=== PATIENT | male | born 1935 | race Caucasian/White ===

== ENCOUNTER 2016-08-19 02:00 | Inpatient (IN) | payer MEDICARE, BC ==
--- NOTE | ~2016-08-19 | MR18 ---
[facility] A Service of [facility] RADIOLOGY TEXT RESULTS PATIENT: RENETTA JENSEN LOCATION: [facility] : 34 UNIT #: [id number] AGE: [address]: Melissa Sheth MD SEX: M ORDER DR: [id number] [place] [id number] [facility]. [place], [place] [address] [id number] I MR#: [id number] Acc #: [id number] NAME: RENETTA JENSEN : 1935 SEX: M STUDY DATE/TIME: 08/19/2016 15:44 [facility] ROOM: [facility] STUDY DESCRIPTION: MR Brain Wo Contrast Attending Physician: Melissa Sheth M.D. Ordering Physician: Melissa Sheth M.D. MRI CENTER REPORT This report is preliminary unless electronic signature is present. EXAM Brain MRI, no contrast, 08/19/2016 TECHNIQUE Routine unenhanced brain MRI. COMPARISON STUDIES None. HISTORY Fall last week with confusion for the past week. FINDINGS There is no evidence of acute ischemia or other restricted diffusion. There is no hemorrhage or hydrocephalus or extraaxial fluid collection. There is volume loss, but normal flow voids are seen in the cerebral vessels. The extracranial structures are unremarkable and bone marrow signal is within normal limits. IMPRESSION Age-appropriate volume loss. No convincing acute abnormality. Mild nonspecific white matter change but again, not greater than expected for age. Dictated by... Maurice Hinton M.D. THIS IS AN ELECTRONICALLY VERIFIED REPORT Maurice Hinton M.D. at 08/20/2016 3:54 PM TEV/pcl [facility] A Service of [facility] RADIOLOGY TEXT RESULTS PATIENT: RENETTA JENSEN LOCATION: [facility] : 34 UNIT #: [id number] AGE: [address]: Melissa Sheth MD SEX: M ORDER DR: TD: 08/19/2016 19:04 JOB #: [id number] MRI CENTER REPORT Page 1 of 1 COPY
--- NOTE | ~2016-08-19 | EKG ---
PATIENT: RENETTA JENSEN UNIT #: [id number] Ventricular Rate: 72 BPM Atrial Rate: 72 BPM P-R Interval: 184 ms QRS Duration: 148 ms Q-T Interval: 438 ms QTC Calculation(Bezet): 479 ms P [place]: 60 degrees Calculated R [place]: -62 degrees Calculated T [place]: 70 degrees Diagnosis Line: Normal sinus rhythm Diagnosis Line: Left axis deviation Diagnosis Line: Right bundle branch block Diagnosis Line: Moderate voltage criteria for LVH, may be normal Diagnosis Line: variant Diagnosis Line: Inferior infarct (cited on or before 19-AUG-2016) Diagnosis Line: Anterolateral infarct (cited on or before Diagnosis Line: 19-AUG-2016) Diagnosis Line: Abnormal ECG Diagnosis Line: When compared with ECG of 21-AUG-2016 09:37, Diagnosis Line: No significant change was found Diagnosis Line: Confirmed by IRINA PORTER MD ([id number]) on Diagnosis Line: 08/23/2016 8:49:29 AM INTERPRETING : EL
--- NOTE | ~2016-08-19 | CO ---
Unit #: [id number] #: [id number] Patient: RENETTA JENSEN [id number] [facility] [address]. [place], [place] [address] [id number] I MR#: [id number] NAME: RENETTA JENSEN ROOM: 329 Age: 80 Sex: M Admission Date: 08/18/2016 : 1935 Attending Physician: Melissa Sheth M.D. Primary Care Physician: Generic Doctor Not In System Requesting Physician: Roxy Reno M.D. CONSULTATION REPORT REASON FOR CONSULTATION Increased troponin. HISTORY OF PRESENT ILLNESS Mr. Jensen is a pleasant 80-year-old who was admitted with confusion to [facility]. He had been seen twice in the past week after a simple fall, without syncope, injuring his knee and his right shoulder. He was on Ultram and this was a concern noted in the chart. His family found him very confused yesterday, fumbling at opening a door, remembering their names and the date, but not typical issues which he could remember. He has known coronary disease, treated by Dr. Garcia initially, and now by Dr. Francis. He is status post coronary artery bypass grafting and has peripheral vascular disease, status post left CEA. He has diabetes and hypertension with hypokalemia. Blood pressures were found at one point during this medical workup to be 170/110. The patient was also found to have a blank stare during one of his evaluations at [facility], and to pour ice on himself during on of his evaluations here at [facility]. To me he appears rational and lucid, answers questions appropriately. He notes no angina or anginal equivalent. He is not clear about what he felt before his bypass. He has had no PND, orthopnea, sleeps in a chair because of his back, no known syncope or edema. PAST MEDICAL HISTORY 1. Coronary artery disease, status post coronary artery bypass grafting. 2. Hypertension. 3. Diabetes. 4. Dyslipidemia. 5. Status post left carotid endarterectomy. 6. Glaucoma. 7. Degenerative joint disease. 8. Hard of hearing. 9. Bilateral foot surgery. 10. Bilateral total knee replacements. SOCIAL HISTORY The patient lives alone. Stopped smoking 28 years ago. Rare alcohol. FAMILY HISTORY Unit #: [id number] #: [id number] Patient: RENETTA JENSEN Not clinically contributory. ALLERGIES Penicillin. CURRENT MEDICATIONS 1. Hydralazine 100 mg t.i.d. 2. Lipitor 20 mg daily. 3. Lasix 40 mg daily. 4. Norvasc 10 mg daily. 5. Aspirin 81 mg daily. Recently increased to 325 mg daily. 6. Cozaar 25 mg daily. 7. Amaryl 1 mg daily. 8. Baclofen 10 mg t.i.d. 9. Ultram 50 mg q.4 h. p.r.n. 10. Naprosyn 500 mg b.i.d. 11. Alphagan eyedrops, Timoptic eyedrops. REVIEW OF SYSTEMS Reported as negative with the exception of the back, as noted above, however, there is the issue of confusion. PHYSICAL EXAMINATION GENERAL: Pleasant, alert, no acute distress. VITALS: Blood pressure initially 173/75, currently 162/81. Height 5'6", weight 205 pounds, BMI 33. PHYSICAL EXAMINATION GENERAL: Pleasant, alert, in no acute distress. VITAL SIGNS: Respiratory rate , blood pressure , heart rate and regular. SKIN: Warm and dry. No xanthelasma. MUSCULOSKELETAL: No missing digits. Moves easily for evaluation. NEUROLOGICAL: Appropriate mood and affect. Alert and oriented x3. HEENT: Pupils equal, round and reactive. No oral cyanosis. No icterus. NECK: Carotids clear to auscultation with no carotid bruits. Normal carotid upstroke bilaterally. Thyroid is normal in size and texture without masses or tenderness. CHEST: Clear to auscultation with no rales or wheezes. Good effort. CARDIAC: Grade 2/6 aortic outflow murmur. Normal point of maximum impulse. Normal S1 and S2. No S3, S4 or rub. ABDOMEN: No hepatosplenomegaly, masses or tenderness. Normal bowel sounds. No abdominal bruits heard. EXTREMITIES: No clubbing, cyanosis or edema. Excellent posterior tibial and dorsalis pedis pulses. DIAGNOSTIC STUDIES LABORATORY: Creatinine was 1.8, potassium 3.3 at [facility]. Here the creatinine is 1.6, potassium 3.2. White blood cell count 10.8, hemoglobin 14.0, platelet count 251,000. Urinalysis shows 2+ protein and no other significant changes. CARDIOVASCULAR: I reviewed the ECG, which shows no change between the [facility] ECG done yesterday at 14:27 and today's ECG at 06:04. There is right bundle branch block, with secondary ST changes. Low anterior forces. Lead placement differences between V3 and V4. No acute ST changes. Intraventricular conduction delay where secondary ST changes are stable between leads 1 and AVL, with evidence of prior inferior infarction. Unit #: [id number] #: [id number] Patient: RENETTA JENSEN ASSESSMENT 1. Acute non-ST elevation myocardial infarction. Appears to be a type 2. No sure what the inciting event is. 2. Confusion, undetermined etiology. Neurology is consulted. 3. Hypertension with hypokalemia, highly suggestive of hyperaldosteronism. We will get him started on spironolactone. 4. Mild chronic kidney disease. Creatinine 1.6 and 1.8. 5. Peripheral vascular disease, status post left carotid endarterectomy. Need to recheck carotids, especially with this confusion episode. 6. Diabetes. 7. Grade 2/6 aortic outflow murmur, very distinct. He has not known of a murmur before. RECOMMENDATIONS 1. Check an echo. Change medications if necessary, if his ejection fraction is very low. 2. Continue with spironolactone. 3. Continue to follow troponins. He does not have any chest pain. As best we can tell, there has been no ventricular dysrhythmia that would contribute to the confusion. We will treating this type 2 non-ST elevation myocardial infarction medically for now. 4. We will check an echo and carotids, and overnight oximetry. I have sometimes seen these acute confusion episodes related to sleep disordered breathing. That would not account for the troponin. 5. Start Plavix. 6. On Lovenox currently. 7. No Integrilin unless ECG changes or chest pain. Thanks very much for this consultation. We will follow with you. Dictated by... Marshal Dobbs M.D. VERNELL/sergo TD: 08/19/2016 11:11 JOB #: [id number] CONSULTATION REPORT Page 1 of 1 X Marshal Dobbs MD X CONSULTATION REPORT
--- NOTE | ~2016-08-19 | EKG ---
PATIENT: RENETTA JENSEN UNIT #: [id number] Ventricular Rate: 82 BPM Atrial Rate: 82 BPM P-R Interval: 236 ms QRS Duration: 160 ms Q-T Interval: 426 ms QTC Calculation(Bezet): 497 ms P [place]: 62 degrees Calculated R [place]: -60 degrees Calculated T [place]: 88 degrees Diagnosis Line: Sinus rhythm with 1st degree A-V block Diagnosis Line: Left axis deviation Diagnosis Line: Right bundle branch block Diagnosis Line: Left ventricular hypertrophy with repolarization Diagnosis Line: abnormality Diagnosis Line: Inferior infarct , age undetermined Diagnosis Line: Anterolateral infarct , age undetermined Diagnosis Line: Abnormal ECG Diagnosis Line: No previous ECGs available Diagnosis Line: Confirmed by VINICIUS MARROQUIN MD ([id number]) on 08/19/2016 Diagnosis Line: 10:41:34 PM INTERPRETING MD: LOPEZ ENCINAS
--- NOTE | ~2016-08-19 | EKG ---
PATIENT: RENETTA JENSEN UNIT #: [id number] Ventricular Rate: 69 BPM Atrial Rate: 69 BPM P-R Interval: 194 ms QRS Duration: 148 ms Q-T Interval: 446 ms QTC Calculation(Bezet): 477 ms P [place]: 58 degrees Calculated R [place]: -60 degrees Calculated T [place]: 47 degrees Diagnosis Line: Sinus rhythm with occasional Premature ventricular Diagnosis Line: complexes Diagnosis Line: Left axis deviation Diagnosis Line: Right bundle branch block Diagnosis Line: Inferior infarct (cited on or before 19-AUG-2016) Diagnosis Line: Possible Anterolateral infarct (cited on or before Diagnosis Line: 19-AUG-2016) Diagnosis Line: Abnormal ECG Diagnosis Line: When compared with ECG of 20-AUG-2016 11:29, Diagnosis Line: (unconfirmed) Diagnosis Line: Premature ventricular complexes are now Present Diagnosis Line: T wave inversion no longer evident in Inferior Diagnosis Line: leads Diagnosis Line: Confirmed by IRINA PORTER MD ([id number]) on Diagnosis Line: 08/21/2016 11:20:48 PM INTERPRETING MD: EL
--- NOTE | ~2016-08-19 | MR134 ---
[facility] A Service of [facility] RADIOLOGY TEXT RESULTS PATIENT: RENETTA JENSEN LOCATION: [facility] 329- : 34 UNIT #: [id number] AGE: [address]: Melissa Sheth MD SEX: M ORDER DR: [id number] [facility] [address]. [place], [place] [address] [id number] I MR#: [id number] Acc #: [id number] NAME: RENETTA JENSEN : 1935 SEX: M STUDY DATE/TIME: 08/19/2016 16:12 UNIT: [facility] ROOM: [facility] STUDY DESCRIPTION: MR MRA Neck Wo Contrast Attending Physician: Melissa Sheth M.D. Ordering Physician: Melissa Sheth M.D. MRI CENTER REPORT This report is preliminary unless electronic signature is present. EXAM Neck MRA, no contrast, 08/19/2016 TECHNIQUE Axial ikpb-pp-oouszs neck MRA with 3-D reformats. COMPARISON Carotid Doppler same date and head MRA same date. FINDINGS The common carotids are patent bilaterally, and the right vertebral is actually seen easily throughout the neck, even though the Doppler study suggests it might be occluded. The left carotid bifurcation is normal without stenosis by NASCET or other criteria. 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 IMPRESSION 1. Both vertebral arteries are patent, contrary to what was suggested by the carotid Doppler. In fact, the right is better seen than the left. 2. 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 Dictated by... Maurice Hinton M.D. THIS IS AN ELECTRONICALLY VERIFIED REPORT Maurice Hinton M.D. at 08/20/2016 3:54 PM TEV/pcl TD: 08/19/2016 19:15 [facility] A Service [facility] RADIOLOGY TEXT RESULTS PATIENT: RENETTA JENSEN LOCATION: [facility]- : 34 UNIT #: [id number] AGE: [address]: Melissa Sheth MD SEX: M ORDER DR: SERGIO #: [id number] MRI CENTER REPORT Page 1 of 1 COPY
--- NOTE | ~2016-08-19 | US37 ---
[facility] A Service of [facility] RADIOLOGY TEXT RESULTS PATIENT: RENETTA JENSEN LOCATION: [facility] : 34 UNIT #: [id number] AGE: [address]: Melissa Sheth MD SEX: M ORDER DR: [id number] [facility] [address]. [place], [place] [address] [id number] I MR#: [id number] Acc #: [id number] NAME: RENETTA JENSEN : 1935 SEX: M STUDY DATE/TIME: 08/19/2016 12:16 UNIT: [facility] PCU ROOM: [facility] STUDY DESCRIPTION: US Carotid W/Doppler Bilateral Attending Physician: Melissa Sheth M.D. Ordering Physician: Melissa Sheth M.D. Primary Care Physician: Generic Doctor Not In System MEDICAL IMAGING REPORT This report is preliminary unless electronic signature is present EXAM Carotid Doppler, 08/19/2016 PROCEDURE Hu-scale imaging, color Doppler flow imaging and Doppler waveform analysis. HISTORY Coronary artery disease, hypertension, hyperlipidemia and known carotid atherosclerosis with previous left carotid endarterectomy now with 2 day history of confusion. FINDINGS Hu-scale imaging reveals extensive evidence of plaque throughout both carotid systems. There is antegrade flow in both common and external carotid arteries, and in the left internal carotid and vertebral artery but there is no flow in the right internal carotid artery and the right vertebral artery is not identified. Left internal carotid peak systolic velocity is 1.12 m/sec with a brisk upstroke and mild to moderate spectral broadening. IMPRESSION 1. 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 2. Left internal carotid peak systolic velocity 1.12 m/sec suggesting less than 50% stenosis by NASCET criteria. 3. Antegrade flow in both external carotid arteries and in the left vertebral artery. Dictated by... Maurice Hinton M.D. [facility] A Service of [facility] RADIOLOGY TEXT RESULTS PATIENT: RENETTA JENSEN LOCATION: [facility] 329- : 34 UNIT #: [id number] AGE: [address]: Melissa Sheth MD SEX: M ORDER DR: THIS IS AN ELECTRONICALLY VERIFIED REPORT Maurice Hinton M.D. at 08/20/2016 3:53 PM Dmitry TD: 08/19/2016 14:17 JOB #: [id number] MEDICAL IMAGING REPORT Page 1 of 1 COPY
--- NOTE | ~2016-08-19 | HP ---
Unit #: [id number] #: [id number] Patient: RENETTA JENSEN [id number] [address] [address] [id number] I MR#: [id number] NAME: RENETTA JENSEN ROOM: 329 Age: 80 Sex: M Admission Date: 08/18/2016 : 1935 Attending Physician: Melissa Sheth M.D. Primary Care Physician: Generic Doctor Not In System HISTORY AND PHYSICAL CHIEF COMPLAINT Confusion. HISTORY This pleasant 80-year-old male, with peripheral vascular disease, hypertension, adult-onset diabetes mellitus and coronary artery disease, was transferred from [facility] Emergency Department for confusion. The patient fell last week, hit his shoulder and was prescribed Ultram. Yesterday, his son was visiting the patient around 12:30 in the afternoon. The patient was quite confused. He was taken to [facility] Emergency Department where he was noted to be confused and had a staring episode, which seemed to respond to a small dose of Ativan. Blood pressure was 177/79. The rest of the vital signs were stable. His workup was fairly unremarkable except for some kidney disease. He was sent to this facility where he is awake, alert, seems to be fairly oriented but is confused. He is trying to melt his ice. When I took the ice away from him to examine him and gave him the ice back, he accidently poured the ice on himself as he forgot that he was holding the ice in a cup. Normally he is alert and oriented and able to take care of himself. PAST MEDICAL HISTORY 1. Peripheral vascular disease status post left carotid endarterectomy. 2. Essential hypertension. 3. Hyperlipidemia. 4. Adult-onset diabetes mellitus. 5. Glaucoma. 6. DJD. 7. Coronary artery disease status post 4-vessel CABG. 8. Melanoma excised. 9. Hard of hearing. 10. Bilateral foot surgery. 11. Bilateral total knee replacement. ALLERGIES Penicillin. HOME MEDICATIONS 1. Hydralazine 100 mg t.i.d. 2. Lipitor 20 mg daily. 3. Lasix 40 mg daily. 4. Norvasc, uncertain dose. Unit #: [id number] #: [id number] Patient: RENETTA JENSEN 5. Aspirin 81 mg daily. 6. Cozaar 25 mg daily. 7. Amaryl 1 mg daily. 8. Baclofen 10 mg t.i.d. 9. Ultram 50 mg q.4 hours as needed. 10. Naprosyn 500 mg b.i.d. 11. Alphagan eyedrops. 12. Timoptic eyedrops. FAMILY HISTORY Noncontributory given the patient's age. SOCIAL HISTORY The patient lives alone. He stopped smoking 28 years ago. Drinks occasional beer. REVIEW OF SYSTEMS Review of systems is difficult to obtain, as the patient is a bit confused and hard of hearing. Noted that he has blood pressure, heart disease, previous history of melanoma, knee replacements, arthritis and coronary artery disease. All other systems were reviewed with the patient and are negative. PHYSICAL EXAMINATION GENERAL: Pleasant, obese 80-year-old male, currently in no acute distress. VITAL SIGNS: Blood pressure 173/75, respirations 20, pulse 91, temperature 98.4. HEENT: Eyes-PERRLA. Extraocular muscles are intact. Pharynx is benign. NECK: Supple without adenopathy or thyromegaly. CHEST: Clear. CARDIAC: Normal S1, S2, with a soft systolic murmur best heard at the right upper sternal border. ABDOMEN: Bowel sounds are present. No hepatosplenomegaly, tenderness or masses. EXTREMITIES: Without edema. Pedal pulses are diminished. No ulcers on the feet. NEUROLOGIC: The patient is awake, alert, oriented to the fact that he is in a hospital. Knows the year and the president. His cranial nerves are intact except that he is hard of hearing. He has equal strength throughout. Normal kltipj-ev-bwnu and negative pronator drift. DIAGNOSTIC STUDIES ADMISSION LABS: Cardiac markers are negative. SMA-12 - BUN 37, creatinine 1.8 without previous values for comparison. Potassium 3.3. Hematocrit 45, white blood count 11.5, normal platelet count. Urinalysis - 2+ protein, trace bacteria with a few white cells. IMAGING: Chest x-ray - Negative. Head CT, I am told, was negative, although I do not have a formal report. ASSESSMENT 1. New confusion and spell, rule out seizure. 2. Fall last week. Patient started Ultram, which may be contributing. 3. Adult-onset diabetes mellitus. 4. Essential hypertension. 5. Glaucoma. Unit #: [id number] #: [id number] Patient: RENETTA JENSEN 6. DJD status post bilateral total knee replacement. 7. Hyperlipidemia. 8. Coronary artery disease status post CABG. 9. Peripheral vascular disease status post left carotid endarterectomy. 10. Melanoma excised. 11. Hard of hearing. 12. Acute versus chronic kidney disease. PLANS 1. IV fluids. 2. Discontinue Ultram. Hold Lasix, Amaryl, ARB, baclofen and Naprosyn. 3. Repeat UA, urine C and S and will give antibiotics if there is concern for infection. 4. MRI of the brain, EEG and neurology consultation. 5. SCDs for DVT prophylaxis. Dictated by Shae Powell/lina TD: 08/19/2016 07:52 JOB #: [id number] HISTORY AND PHYSICAL Page 1 of 1 X Geno Milligan MD X HISTORY AND PHYSICAL
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
--- NOTE | ~2016-08-19 | TOC ---
Unit #: [id number] #: [id number] Patient: RENETTA JENSEN [id number] [address] [place], [place] [address] [id number] I MR#: [id number] NAME: RENETTA JENSEN ROOM: 560 Age: 80 Sex: M Admission Date: 08/19/2016 : 1935 Attending Physician: Melissa Sheth M.D. TRANSFER OF CARE SUMMARY PRINCIPAL DIAGNOSES 1. Non-ST segment elevation myocardial infarction. 2. Acute confusion question secondary to #1, workup otherwise negative. 3. 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 4. Multivessel coronary artery disease status post stenting to right coronary artery x1. 5. Hypokalemia. 6. Peripheral arterial disease with prior history of left carotid endarterectomy. 7. Diabetes mellitus type 2. 8. Chronic decreased mobility, at baseline, independent with activities of daily living. 9. Severe vitamin B12 deficiency with vitamin B12 level of 194. 10. Hyperlipidemia. 11. Hypertension. 12. Chronic back pain secondary to degenerative disk disease. 13. History of melanoma. 14. Hard of hearing. 15. Chronic systolic congestive heart failure without exacerbation. CONSULTANTS 1. Dr. Dan, Neurology. 2. Dr. Dobbs, Cardiology. PROCEDURES 1. Two-dimensional echocardiogram on August 19, 2016, with mild mitral stenosis, mild aortic regurgitation noted, right ventricular systolic pressure of 25 mmHg, and ejection fraction of 35% to 40%. 2. Left-sided heart catheterization on August 21, 2016, with severe inferior wall hypokinesis of the left ventricle. Anterior wall had mild hypokinesis. Left main was calcified with 30% stenosis. The LAD proximally was severely calcified with 99.9% stenosis at the first septal branch. Distal was normal. The SANTORO graft was 100% stenosed. Saphenous vein graft to first diagonal was 30% stenosed. Left circumflex 100% stenosed. Saphenous vein graft to obtuse marginal patent. The RCA was 100% stenosed. Saphenous vein graft was 90% stenosed at the mid segment. Patient underwent stenting of the saphenous vein graft to RCA, and the plan is for staged PCI to the LAD. 3. EEG which was negative. 4. Carotid Doppler bilaterally on August 19, 2016, with occluded right internal carotid artery and right vertebral artery was questionably occluded. Antegrade flow in both external carotid arteries. Unit #: [id number] #: [id number] Patient: RENETTA JENSEN 5. MRI of the brain without contrast on August 19, 2016, with age-appropriate volume loss and no other acute abnormality. Chronic white matter ischemic change noted. 6. 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 CLINICAL HISTORY AND HOSPITAL COURSE Mr. Jensen is a very nice 80-year-old male transferred from [facility] after presenting there with the abrupt onset of confusion. Please refer to History and Physical for further details. Patient's confusion was described as a starring episode rather than any sort of focal neurologic deficit consistent with stroke and no seizure-like activity. A CT scan of the head was negative at [facility]. Dr. Dan was consulted regarding confusion. There was concern initially that this might represent seizure activity particularly given patient improved with Ativan at [facility]. However, he has had no further episodes here, EEG was negative, and given isolated event, there are no plans to treat as seizure activity at this time. It is felt that his confusion may be secondary to decreased cerebral perfusion secondary to his NSTEMI. Patient denied feeling poorly, i.e., chest pain or shortness of breath prior to the onset of his confusion. However, when he presented here, troponin was found to be elevated at 1.8 for which Cardiology was consulted, and patient was placed on aspirin, nitroglycerin, oxygen, morphine, and therapeutic Lovenox. Troponin since that time has subsequently trended downward, and EKGs have been unremarkable. Patient has a known history of coronary artery disease status post bypass grafting approximately 30 years ago. Patient underwent left-sided heart catheterization today revealing stenosis primarily to his saphenous vein graft to the RCA and to his SANTORO graft to the left circumflex. Patient underwent stent placement x1 to his right coronary artery, and there are plans for staged PCI at [facility]. This will be further discussed with patient via Cardiology. Patient did have a mild bump in creatinine upon presentation with a creatinine of 1.6, but creatinine has now normalized to 1 to 1.1 which is patient's baseline. Patient is being monitored overnight given his stenting to the saphenous vein graft to the RCA, and I anticipate discharge home on August 22, 2016, with followup with Cardiology as an outpatient for intervention of his SANTORO graft. I will note, patient was found to have significant vitamin B12 deficiency. This has been replaced subcutaneously during hospitalization, and he can be discharged home on oral supplementation with plans for injections as an outpatient at his primary care physician office. Further hospitalization to be dictated as an addendum. Dictated by... Melissa Sheth M.D. Unit #: [id number] #: [id number] Patient: RENETTA JENSEN SUSIE/maureen TD: 08/23/2016 15:30 JOB #: [id number] TRANSFER OF CARE SUMMARY Page 1 of 1 X Melissa Sheth MD X TRANSFER OF CARE SUMMARY
--- NOTE | ~2016-08-19 | DS ---
Unit #: [id number] #: [id number] Patient: RENETTA JENSEN [id number] [address] [place], [place] [address] [id number] I MR#: [id number] NAME: RENETTA JENSNE ROOM: 560 Age: 80 Sex: M Admission Date: 08/19/2016 : 1935 Discharge Date: 08/22/2016 Attending Physician: Melissa Sheth M.D. Primary Care Physician: Generic Doctor Not In System DISCHARGE SUMMARY FINAL DIAGNOSES 1. Non-ST elevation myocardial infarction with multivessel coronary artery disease status post stent in the right coronary artery. 2. Delirium. SECONDARY DIAGNOSES 1. Diabetes mellitus type 2. 2. Peripheral arterial disease. 3. Hypertension. 4. Glaucoma. 5. Degenerative joint disease. 6. Hard of hearing. 7. Arthritis. CONSULTS 1. Dr. Marshal Dobbs. 2. Dr. Dan, neurology. PROCEDURES Patient had a cardiac catheterization by Dr. Davis on 08/21/16, which showed proximal CAD, heavily calcified and for follow up procedure in 1-2 weeks. HOSPITAL COURSE Patient is a pleasant, 80-year-old gentleman who was confused. He does have peripheral arterial disease, peripheral vascular disease, as well as diabetes mellitus and coronary artery disease. Transferred from [facility] for increased confusion. He, on transfer, was subsequently seen by cardiology as well as neurology. His troponins were elevated and he was diagnosed with acute non-ST elevation myocardial infarction and he had a cardiac catheterization. This was done by Dr. Davis. Patient seems to be suitable and stable for discharge at this time. His confusion seems to be less. There is outpatient plan for repeat cardiac catheterization in 1-[address] Davis. He will be seen by cardiology prior to discharge. MEDICATIONS ON DISCHARGE At this time include: 1. Tylenol 650 mg p.o. q.4 hourly p.r.n. [id number]. 2. Norvasc 10 mg p.o. every day. 3. Lopressor 25 mg p.o. b.i.d. 4. Timoptic in each eye b.i.d. 5. Lipitor 80 mg p.o. every day. 6. Hydralazine 50 mg p.o. twice daily. Unit #: [id number] #: [id number] Patient: RENETTA JENSEN 7. Cozaar 25 mg p.o. every day. 8. Brimonidine tartrate 1 drop each eye twice daily. 9. Aspirin 81 mg p.o. every day. 10. Percocet 5/325 one tablet p.o. q.4 hourly p.r.n. 11. Brilinta 19 mg p.o. twice daily. 12. Spironolactone 25 mg p.o. every day. 13. Nitroglycerin 0.4 mg sublingual p.r.n. chest pain. DISCHARGE INSTRUCTIONS 1. He will be discharged in stable condition for outpatient followup with his PCP in next 3-5 days. 2. He will be discharged with home health. 3. Follow up will be per: A. PCP in 3-5 days. B. Cardiology in about 1-2 weeks. TIME SPENT COORDINATING DISCHARGE About 24 minutes. Dictated by... Shae Navarro/derek TD: 08/22/2016 09:09 JOB #: [id number] DISCHARGE SUMMARY Page 1 of 1 X Crescencio Fernández MD X DISCHARGE SUMMARY
--- NOTE | ~2016-08-19 | MR122 ---
[facility] A Service of [facility] RADIOLOGY TEXT RESULTS PATIENT: RENETTA JENSEN LOCATION: C3A 329- : 34 UNIT #: [id number] AGE: [address]: Melissa Sheth MD SEX: M ORDER DR: [id number] [facility] [address] [facility] [place] [facility]. [place], [place] [address] [id number] I MR#: [id number] Acc #: [id number] NAME: RENETTA JENSEN : 1935 SEX: M STUDY DATE/TIME: 08/19/2016 16:02 UNIT: A PCU ROOM: [facility] STUDY DESCRIPTION: MR MRA Head Wo Contrast Attending Physician: Melissa Sheth M.D. Ordering Physician: Melissa Sheth M.D. Primary Care Physician: Generic Doctor Not In System MRI CENTER REPORT This report is preliminary unless electronic signature is present. EXAM Head MRA, no contrast, 08/19/2016. PROCEDURE Axial [id number] head MRA with 3-dimensional reformats. COMPARISON Carotid Doppler, 08/19/2016. HISTORY Confusion after fall one week ago FINDINGS The right internal carotid is occluded, and its territory supplied via both the anterior communicator and right posterior communicator. The status of the right vertebral cannot be assessed below the skull base, but it is patent intracranially, and the basilar artery is patent. There is mild mid basilar stenosis, but no high-grade intracranial flow-limiting stenosis is seen, other than the known internal carotid occlusion at the skull base. There is slightly diminished flow on the right, compared to the left, in the middle cerebral distributions, but not a surprising finding, given the occlusion of the internal carotid. 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 Mild mid basilar stenosis, but no other high-grade intracranial flow in the stenosis and no evidence of intracranial aneurysm. [facility] A Service [facility] RADIOLOGY TEXT RESULTS PATIENT: RENETTA JENSEN LOCATION: C3A 329- : 34 UNIT #: [id number] AGE: [address]: Melissa Sheth MD SEX: M ORDER DR: Dictated by... Maurice Hinton M.D. THIS IS AN ELECTRONICALLY VERIFIED REPORT Maurice Hinton M.D. at 08/20/2016 3:49 PM NANCY/woodrow TD: 08/19/2016 19:12 JOB #: [id number] MRI CENTER REPORT Page 1 of 1 COPY
--- NOTE | ~2016-08-19 | EE ---
Unit #: [id number] #: [id number] Patient: RENETTA JENSEN [id number] [address] [address] [id number] I MR#: [id number] NAME: RENETTA JENSEN : 1935 SEX: M STUDY DATE/TIME: 08/19/2016 UNIT: C3A PCU ROOM: [address] [place] [address] DESCRIPTION: EEG Attending Physician: Melissa Sheth M.D. Referring Physician: Roxy Reno M.D. Primary Care Physician: Generic Doctor Not In System NEURODIAGNOSTICS REPORT EXAM EEG REASON FOR STUDY Seizure, mental status changes. EEG DESCRIPTION This is an inpatient, digitally recorded multi-montage adult EEG with leads placed according to the International 10-20 system. Hyperventilation and photic stimulation were not done. This EEG shows 8 to 9 Hz posterior background. The patient did become drowsy but I did not see any deeper stages of sleep. Hyperventilation and photic stimulation were not done. Nothing suggesting clearcut interictal discharges or clinical events. IMPRESSION An essentially normal adult awake and drowsy EEG. An EEG like this does not rule out epilepsy. Clinical correlation is recommended if clinically indicated. Sleep deprived/prolonged recording may be considered. Dictated by... Shae Harris/marshall TD: 08/19/2016 20:47 JOB #: [id number] Unit #: [id number] #: [id number] Patient: RENETTA JENSEN NEURODIAGNOSTICS REPORT Page 1 of 1 X Marin Dan MD NEURODIAGNOSTICS REPORT
--- NOTE | ~2016-08-19 | EKG ---
PATIENT: RENETTA JENSEN UNIT #: [id number] Ventricular Rate: 77 BPM Atrial Rate: 77 BPM P-R Interval: 208 ms QRS Duration: 152 ms Q-T Interval: 440 ms QTC Calculation(Bezet): 497 ms P Lyman: 58 degrees Calculated R Lyman: -58 degrees Calculated T Lyman: 64 degrees Diagnosis Line: Normal sinus rhythm Diagnosis Line: Left axis deviation Diagnosis Line: Right bundle branch block Diagnosis Line: Inferior infarct (cited on or before 19-AUG-2016) Diagnosis Line: Poor R wave progression questionable lead position Diagnosis Line: or body habitus Diagnosis Line: Abnormal ECG Diagnosis Line: When compared with ECG of 21-AUG-2016 06:14, Diagnosis Line: (unconfirmed) Diagnosis Line: Premature ventricular complexes are no longer Diagnosis Line: Present Diagnosis Line: Confirmed by IRINA PORTER MD ([id number]) on Diagnosis Line: 08/21/2016 11:22:31 PM INTERPRETING MD: EL
--- NOTE | ~2016-08-19 | EKG ---
PATIENT: RENETTA JENSEN UNIT #: [id number] Ventricular Rate: 61 BPM Atrial Rate: 61 BPM P-R Interval: 190 ms QRS Duration: 144 ms Q-T Interval: 446 ms QTC Calculation(Bezet): 448 ms P [place]: 45 degrees Calculated R [place]: -60 degrees Calculated T [place]: 1 degrees Diagnosis Line: Normal sinus rhythm Diagnosis Line: Left axis deviation Diagnosis Line: Right bundle branch block with repolarization Diagnosis Line: abnormality Diagnosis Line: Minimal voltage criteria for LVH, may be normal Diagnosis Line: variant Diagnosis Line: Inferior infarct (cited on or before 19-AUG-2016) Diagnosis Line: Anterior infarct (cited on or before 19-AUG-2016) Diagnosis Line: Abnormal ECG Diagnosis Line: When compared with ECG of 19-AUG-2016 06:04, Diagnosis Line: IL interval has decreased Diagnosis Line: Serial changes of Anterior infarct Present Diagnosis Line: Confirmed by KEON CERDA MD ([id number]) on 08/21/2016 Diagnosis Line: 2:46:16 PM INTERPRETING MD: PRASHANT ENCINAS
[~2016-08-19 02:00] MED LIST: ALPHAGAN P5 ML OU; AMARYL1 MG PO; BACLOFEN10 MG PO; COZAAR25 MG PO; FUROSEMIDE40 MG PO; HYDRALAZINE HC100 MG PO; LIPITOR20 MG PO; LOW DOSE ASPIRI81 M2 PO; NAPROSYN-EC500 M1 PO; NORVASC PO; TIMOPTIC5 ML OU; ULTRAM PO
[2016-08-19 02:48] LABS: URINE SOURCE CLEAN CATCH
[2016-08-19 02:57] LABS: URINE APPEARANCE CLEAR; URINE BILIRUBIN NEG (NEG); URINE BLOOD NEG (NEG); URINE COLOR YELLOW; URINE GLUCOSE NEG (NEG); URINE KETONE NEG (NEG); URINE LEUKOCYTE ESTERASE NEG (NEG); URINE NITRATE NEG (NEG); URINE PH 5.5 (5-8); URINE PROTEIN 2+ (NEG); URINE SPECIFIC GRAVITY 1.016 (1.003-1.035); URINE UROBILINOGEN 0.2 MG/DL (NEG)
[2016-08-19 03:00] LABS: URBCS1 AUWI 0-2 /[HPF] (0-2); URINE BACTERIA AUWI NEG (NEGATIVE); URINE SQUAMOUS EPITHELIAL CELL NONE SEEN /[HPF]; UWBCS1 AUWI 0-2 (0-5)
[2016-08-19 06:20] LABS: MEAN CELL VOLUME 85.4 FL (83-96); MEAN CORPUSCULAR HEMOGLOBIN 27.8 PG (28-34); MEAN CORPUSCULAR HGB CONC 32.6 g/dL (30-36); MEAN PLATELET VOLUME 8.3 FL (6.5-11.5); RED BLOOD COUNT 5.03 X10e (3.90-5.60); RED CELL DISTRIBUTION WIDTH 14.8 % (11.0-15.5); WHITE BLOOD COUNT 10.8 X10e3 (4.0-10.5)
[2016-08-19 06:28] LABS: PARTIAL THROMBOPLASTIN TIME 27.3 SECONDS (23.5-31.3); PROTHROMBIN TIME (PATIENT) 10.8 SECONDS (9.6-11.5)
[2016-08-19 07:14] LABS: ALBUMIN SERUM 3.2 g/dL (3.5-5.0); BILIRUBIN,TOTAL 0.7 mg/dL (0.2-2.0); BUN/CREATININE RATIO 22.5; CALCIUM SERUM 9.3 mg/dL (8.4-10.2); CREATININE SERUM 1.6 mg/dL (0.6-1.4); GLOM FILT RATE Estimated 39.8 mL/min (>60); POTASSIUM 3.2 mmol/L (3.5-5.1); PROTEIN TOTAL SERUM 6.5 g/dL (6.0-8.3)
[2016-08-19 07:34] LABS: %MB 8.2 % (0.0-4.0); MB 14.8 ng/ml
[2016-08-19 11:13] LABS: CHOLESTEROL 142 mg/dL (0-200); CPK (CREATINE PHOSPHOKINASE) 183 IU/L (36-174); HDL CHOLESTEROL 39 mg/dL (29-75); LDL CHOLESTEROL 87 mg/dL (-130); LDL/HDL RATIO 2 RATIO (0-4); TRIGLYCERIDES 82 mg/dL (10-160)
[2016-08-19 12:39] LABS: FOLATE (FOLIC ACID) 10.1 ng/mL (>5.8)
[2016-08-20 06:18] LABS: HEMATOCRIT 40.9 % (38.0-50.0); HEMOGLOBIN 13.7 gm/dL (13.0-16.0); MEAN CELL VOLUME 85.2 FL (83-96); MEAN CORPUSCULAR HEMOGLOBIN 28.4 PG (28-34); MEAN CORPUSCULAR HGB CONC 33.4 g/dL (30-36); MEAN PLATELET VOLUME 8.4 FL (6.5-11.5); RED BLOOD COUNT 4.8 X10e (3.90-5.60); RED CELL DISTRIBUTION WIDTH 14.5 % (11.0-15.5); WHITE BLOOD COUNT 8.8 X10e3 (4.0-10.5)
[2016-08-20 07:18] LABS: CALCIUM SERUM 8.9 mg/dL (8.4-10.2); GLOM FILT RATE Estimated 70.3 mL/min (>60); MAGNESIUM 1.9 mg/dL (1.6-3.0); POTASSIUM 4.2 mmol/L (3.5-5.1)
[2016-08-20 16:26] LABS: URINE APPEARANCE CLEAR; URINE BILIRUBIN NEG (NEG); URINE BLOOD NEG (NEG); URINE COLOR YELLOW; URINE GLUCOSE NEG (NEG); URINE KETONE NEG (NEG); URINE LEUKOCYTE ESTERASE NEG (NEG); URINE NITRATE NEG (NEG); URINE PROTEIN TRACE (NEG); URINE SPECIFIC GRAVITY 1.017 (1.003-1.035)
[2016-08-21 05:24] LABS: HEMATOCRIT 41.1 % (38.0-50.0); HEMOGLOBIN 13.6 gm/dL (13.0-16.0); MEAN CORPUSCULAR HEMOGLOBIN 28.1 PG (28-34); MEAN CORPUSCULAR HGB CONC 33.1 g/dL (30-36); MEAN PLATELET VOLUME 8.3 FL (6.5-11.5); RED BLOOD COUNT 4.84 X10e (3.90-5.60); RED CELL DISTRIBUTION WIDTH 14.5 % (11.0-15.5); WHITE BLOOD COUNT 8.1 X10e3 (4.0-10.5)
[2016-08-21 06:23] LABS: GLOM FILT RATE Estimated 70.3 mL/min (>60)
[2016-08-21 06:37] LABS: PARTIAL THROMBOPLASTIN TIME 27.9 SECONDS (23.5-31.3); PROTHROMBIN TIME (PATIENT) 10.8 SECONDS (9.6-11.5)
[2016-08-21 19:42] LABS: ANGIO %MB 8.9 % (0.0-4.0); ANGIO MB 5.6 ng/ml
[2016-08-22 01:38] LABS: BUN/CREATININE RATIO 19.23; CALCIUM SERUM 8.9 mg/dL (8.4-10.2); CREATININE SERUM 1.3 mg/dL (0.6-1.4); GLOM FILT RATE Estimated 51.2 mL/min (>60); POTASSIUM 4.1 mmol/L (3.5-5.1)
[2016-08-22 02:17] LABS: ANGIO %MB 6.8 % (0.0-4.0)
[2016-08-22] MEDS ORDERED: ACETAMINOPHEN PO (10:47)
[2016-08-22] MEDS ORDERED: LOPRESSOR PO (10:49)
[2016-08-22] MEDS ORDERED: PERCOCET5/325 PO (10:53)
[2016-08-22] MEDS ORDERED: BRILINTA90 MG PO (10:54)
[2016-08-22] MEDS ORDERED: NITROQUICK0.4 MG SL (10:55)
== END 2016-08-22 12:00 | disposition home or self-care (01) | DRG 246 ==
LOC: C3A PCU 02:00 → C5B 08-21 14:49
PROVIDERS: Internal Medicine; Internal Medicine Cardiovascular Disease
PROC: B246ZZZ Ultrasonography of Right and Left Heart (ICD-10-PCS; 2016-08-19)
PROC: 027034Z Dilation of Coronary Artery, One Artery with Drug-eluting Intraluminal Device, Percutaneous Approach (ICD-10-PCS; principal; 2016-08-21)
PROC: 4A023N7 Measurement of Cardiac Sampling and Pressure, Left Heart, Percutaneous Approach (ICD-10-PCS; 2016-08-21)
PROC: B213YZZ Fluoroscopy of Multiple Coronary Artery Bypass Grafts using Other Contrast (ICD-10-PCS; 2016-08-21)
PROC: B211YZZ Fluoroscopy of Multiple Coronary Arteries using Other Contrast (ICD-10-PCS; 2016-08-21)
PROC: B215YZZ Fluoroscopy of Left Heart using Other Contrast (ICD-10-PCS; 2016-08-21)
DX: I21.4 Non-ST elevation (NSTEMI) myocardial infarction (principal); G92 Toxic encephalopathy; N17.9 Acute kidney failure, unspecified; E11.22 Type 2 diabetes mellitus with diabetic chronic kidney disease; I73.9 Peripheral vascular disease, unspecified; I25.10 Atherosclerotic heart disease of native coronary artery without angina pectoris; R41.0 Disorientation, unspecified; Z95.1 Presence of aortocoronary bypass graft; I12.9 Hypertensive chronic kidney disease with stage 1 through stage 4 chronic kidney disease, or unspecified chronic kidney disease; N18.9 Chronic kidney disease, unspecified; H40.9 Unspecified glaucoma; M19.90 Unspecified osteoarthritis, unspecified site; H91.90 Unspecified hearing loss, unspecified ear; E78.5 Hyperlipidemia, unspecified; E87.6 Hypokalemia; E53.8 Deficiency of other specified B group vitamins; Z79.82 Long term (current) use of aspirin; Z88.0 Allergy status to penicillin; Z96.653 Presence of artificial knee joint, bilateral
CPT/HCPCS: 70544; 70547; 70551; 80048; 80053; 80061; 81003; 82550; 82553; 82607; 82746; 82947; 83036; 83735; 84439; 84443; 84484; 85027; 85347; 85610; 85730; 87086; 87088; 87186; 93005; 93306; 93880; 94760; 95816; 97162; 97167; C1725; C1769; C1874; C1887; C1894; G8978-GP; G8979-GP; G8980-GP; G8987-GO; G8988-GO; G8989-GO; J0153; J0461; J1644; J1650; J2250; J2270; J2370; J2405; J3010; J3420